=== PATIENT | male | born 2000 | race Caucasian/White ===

== ENCOUNTER 2023-07-08 00:49 | Emergency (ER) | payer BC ==
[~2023-07-08] VITALS: Ht 188 cm; Wt 63.5 kg
[2023-07-08 01:01] VITALS: BP_SYST 124; PULSE 67; RESP 16; TEMP 98.3; O2SAT 99
[2023-07-08 01:30] VITALS: BP_SYST 124; PULSE 67; RESP 16; TEMP 98.3; O2SAT 99
[2023-07-08] MEDS ORDERED: BALANCED SALT IRRIG SOLN 15 ML IO ONE (01:30)
[2023-07-08] MEDS ORDERED: TETRACAINE HCL/PF 0.5% OPHTHALMIC DROPS 4 ML OP ONE (01:30)
[2023-07-08] MEDS: ACETAMINOPHEN 500 MG TABLET PO ONE (01:45)
[2023-07-08] MEDS: IBUPROFEN 600 MG TABLET PO ONE (01:45)
[2023-07-08] MEDS ORDERED: IBUP-1969 PO (01:46)
[2023-07-08] MEDS ORDERED: ERYEYE RIGHT EYE (01:46)
== END 2023-07-08 01:30 | disposition home or self-care (01) ==
LOC: SED 00:49
DX: T15.01XA Foreign body in cornea, right eye, initial encounter (principal); Z79.899 Other long term (current) drug therapy; W44.9XXA Unspecified foreign body entering into or through a natural orifice, initial encounter; Y93.89 Activity, other specified; Y92.89 Other specified places as the place of occurrence of the external cause; Y99.8 Other external cause status
CPT/HCPCS: 99284